=== PATIENT | male | born 1930 | race Caucasian/White ===

== ENCOUNTER → 2016-08-28 | Outpatient (REF) | payer MEDICARE, MEDICAID ==
[~2016-08-28] MED LIST: ALPH0.156 OU; AMLO5TAB2 PO; ARIC5TAB PO; ASPI1TAB PO; CALC600T10 PO; CALC600T3 PO; CAPT1TAB17 PO; CEFD1CAP8 PO; DULC10SU2 PR; ENEMENE3 PR; FLOM5CAP PO; FLUC10TA PO; GLIM2TAB PO; GLIP5TAB8 PO; INSULANT SC; ISTA0.5S OU; LASI20TA PO; LEVO25TA5 PO; LEVO50TA5 PO; MILKSUS PO; NYST100024 TOP; NYST10PW TOP; TIMO0.5S4 OU; TRAV04OPD OU; TYLE325T5 PO; ULTR0.0510 TOP; VITA-130 PO; VITA100066 PO; VITAD1000T PO; VITMTA PO; [UNRECOGNIZED DRUG - CODE] PR
[2016-08-28 14:02] LABS: CALCIUM LEVEL 8.3 MG/DL (8.8-10.2); CREATININE FOR GFR 1.25 MG/DL (0.70-1.30); GLOMERULAR FILTRATION RATE 58.3 (>35); POTASSIUM SERUM 4.1 MEQ/L (3.5-5.1)
== END ==
LOC: SKLAB2 10:58
PROVIDERS: ATTEND Internal Medicine
DX: E03.9 Hypothyroidism, unspecified (principal); R73.01 Impaired fasting glucose

== ENCOUNTER → 2016-09-14 | Outpatient (REF) | payer MEDICARE, MEDICAID | LOC: SKLAB2 07:30 | PROVIDERS: ATTEND Internal Medicine | DX: E03.9 Hypothyroidism, unspecified (principal) ==

== ENCOUNTER → 2016-10-02 | Outpatient (REF) | payer MEDICARE, MEDICAID | END | disposition home or self-care (01) | LOC: SKLAB2 07:00 | PROVIDERS: ATTEND Internal Medicine | DX: E03.9 Hypothyroidism, unspecified (principal) ==

== ENCOUNTER → 2017-02-26 | Outpatient (REF) | payer MEDICARE, MEDICAID ==
[~2017-02-26] MED LIST changes: +ARIC1TAB PO; -ARIC5TAB PO; -CALC600T10 PO; +CALC600T31 PO; +ENEMENE16 PR; -ENEMENE3 PR; -NYST100024 TOP; +NYST1POW9 TOP; -VITA-130 PO; +VITA500T PO
[2017-02-26 14:44] LABS: CALCIUM LEVEL 9.1 MG/DL (8.8-10.2); CREATININE FOR GFR 1.25 MG/DL (0.70-1.30); GLOMERULAR FILTRATION RATE 58.3 (>35); POTASSIUM SERUM 4.2 MEQ/L (3.5-5.1)
== END ==
LOC: SKLAB2 13:00
PROVIDERS: ATTEND Internal Medicine
DX: E11.9 Type 2 diabetes mellitus without complications (principal); E03.9 Hypothyroidism, unspecified

== ENCOUNTER → 2017-04-02 | Outpatient (REF) | payer MEDICARE, MEDICAID | LOC: SKLAB2 07:00 | PROVIDERS: ATTEND Internal Medicine | DX: E03.9 Hypothyroidism, unspecified (principal) ==

== ENCOUNTER → 2017-04-24 | Outpatient (REF) | payer MEDICARE, MEDICAID ==
[2017-04-24 15:31] LABS: MEAN CORPUSCULAR HGB CONC 32.6 g/dl (32.0-36.5); RED CELL DISTRIBUTION WIDTH 13.3 % (11.5-14.5); WHITE BLOOD COUNT 8.4 K/mm3 (4.0-10.0)
[2017-04-24 15:54] LABS: CALCIUM LEVEL 9.2 MG/DL (8.8-10.2); CREATININE FOR GFR 1.77 MG/DL (0.70-1.30); POTASSIUM SERUM 4.7 MEQ/L (3.5-5.1)
== END ==
LOC: SKLAB2 13:48
PROVIDERS: ATTEND Internal Medicine
DX: E11.9 Type 2 diabetes mellitus without complications (principal)

== ENCOUNTER → 2017-04-26 | Outpatient (REF) | payer MEDICARE, MEDICAID ==
[2017-04-26 12:21] LABS: BASO % 0.3 % (0.0-1.0); EOS # 0.1 K/mm3 (0.0-0.50); EOS % 0.6 % (0.0-3.0); LARGE UNSTAINED CELL # 0.1 K/mm3 (0.0-0.4); LARGE UNSTAINED CELL % 0.7 % (0.0-4.0); LYMPH # 1.9 K/mm3 (1.5-4.5); MEAN CORPUSCULAR HEMOGLOBIN 30.2 pg (27.0-33.0); MEAN CORPUSCULAR HGB CONC 32.7 g/dl (32.0-36.5); MEAN CORPUSCULAR VOLUME 92.2 fl (80.0-96.0); MONO # 0.7 K/mm3 (0.0-0.8); MONO % 4.2 % (0.0-5.0); NEUTROPHILS # 13.4 K/mm3 (1.8-7.7); NEUTROPHILS % 83.3 % (36.0-66.0); PLATELET COUNT, AUTOMATED 194 k/mm3 (150-450); RED CELL DISTRIBUTION WIDTH 13.6 % (11.5-14.5); WHITE BLOOD COUNT 16.1 K/mm3 (4.0-10.0)
== END ==
LOC: SKLAB2 10:16
PROVIDERS: ATTEND Internal Medicine
DX: N40.0 Benign prostatic hyperplasia without lower urinary tract symptoms (principal); E03.9 Hypothyroidism, unspecified; R41.82 Altered mental status, unspecified
CPT/HCPCS: 36415; 84443; 85025; 87088; 87186; G0103

== ENCOUNTER → 2017-04-27 | Outpatient (REF) | payer MEDICARE, MEDICAID ==
[2017-04-27 07:18] LABS: MEAN CORPUSCULAR HGB CONC 31.9 g/dl (32.0-36.5); RED CELL DISTRIBUTION WIDTH 13.9 % (11.5-14.5); WHITE BLOOD COUNT 15.6 K/mm3 (4.0-10.0)
[2017-04-27 07:42] LABS: CALCIUM LEVEL 9.3 MG/DL (8.8-10.2); CREATININE FOR GFR 1.86 MG/DL (0.70-1.30); GLOMERULAR FILTRATION RATE 36.9 (>35); POTASSIUM SERUM 3.8 MEQ/L (3.5-5.1)
== END ==
LOC: SKLAB2 08:15
PROVIDERS: ATTEND Internal Medicine
DX: N39.0 Urinary tract infection, site not specified (principal)

== ENCOUNTER → 2017-04-28 | Outpatient (REF) | payer MEDICARE, MEDICAID ==
[2017-04-28 07:19] LABS: MEAN CORPUSCULAR HEMOGLOBIN 30.2 pg (27.0-33.0); MEAN CORPUSCULAR HGB CONC 31.8 g/dl (32.0-36.5); RED CELL DISTRIBUTION WIDTH 13.9 % (11.5-14.5); WHITE BLOOD COUNT 15.3 K/mm3 (4.0-10.0)
[2017-04-28 07:45] LABS: CALCIUM LEVEL 8.8 MG/DL (8.8-10.2); CREATININE FOR GFR 1.61 MG/DL (0.70-1.30); GLOMERULAR FILTRATION RATE 43.5 (>35); POTASSIUM SERUM 3.7 MEQ/L (3.5-5.1)
== END ==
LOC: SKLAB2 07:30
PROVIDERS: ATTEND Internal Medicine
DX: E86.0 Dehydration (principal)

== ENCOUNTER → 2017-04-30 | Outpatient (REF) | payer MEDICARE, MEDICAID ==
[2017-04-30 09:22] LABS: CALCIUM LEVEL 7.8 MG/DL (8.8-10.2); CREATININE FOR GFR 1.37 MG/DL (0.70-1.30); GLOMERULAR FILTRATION RATE 52.4 (>35); POTASSIUM SERUM 3.3 MEQ/L (3.5-5.1)
== END ==
LOC: SKLAB2 07:30
PROVIDERS: ATTEND Internal Medicine
DX: E03.9 Hypothyroidism, unspecified (principal)

== ENCOUNTER → 2017-05-01 | Outpatient (REF) | payer MEDICARE, MEDICAID ==
--- NOTE | 2017-05-01 14:29 | REP ---
Clinical: Hypoxemia. Comparison: 09/28/2015. Findings: Mediastinum and cardiac silhouette are within normal limits and stable. Lung rashid demonstrate chronic interstitial changes. No focal consolidation, effusion, or pneumothorax. Skeletal structures intact. Impression: Chronic stable changes. No acute cardiopulmonary process. Signed by Dante Krause MD 05/01/2017 02:21 P
== END ==
LOC: SKLAB2 13:42
PROVIDERS: ATTEND Internal Medicine
DX: R09.02 Hypoxemia (principal)

== ENCOUNTER → 2017-05-01 | Outpatient (REF) | payer MEDICARE, MEDICAID ==
[2017-05-01 11:20] LABS: MEAN CORPUSCULAR HEMOGLOBIN 30.1 pg (27.0-33.0); MEAN CORPUSCULAR HGB CONC 32.2 g/dl (32.0-36.5); MEAN CORPUSCULAR VOLUME 93.7 fl (80.0-96.0); RED CELL DISTRIBUTION WIDTH 14.4 % (11.5-14.5)
[2017-05-01 11:49] LABS: CALCIUM LEVEL 8.5 MG/DL (8.8-10.2); CREATININE FOR GFR 1.77 MG/DL (0.70-1.30); POTASSIUM SERUM 3.4 MEQ/L (3.5-5.1)
== END ==
LOC: SKLAB2 08:43
PROVIDERS: ATTEND Internal Medicine
DX: E86.0 Dehydration (principal); R09.02 Hypoxemia